=== PATIENT | male | born 1935 | race Caucasian/White ===

== ENCOUNTER 2017-09-04 10:48 | Day surgery (SDC) | payer MEDICARE ==
[~2017-09-04] VITALS: Ht 172.7 cm; Wt 90.9 kg
--- NOTE | ~2017-09-04 | OP ---
PATIENT NAME: MIGUEL RODRIGUEZ MEDICAL RECORD: [id number] :34 LOCATION:[facility] ADMISSION DATE: SURGEON: AYDIN SANCHEZ MD DATE OF OPERATION: 09/04/2017 SURGEON: Aydin Sanchez MD ANESTHESIA: MAC by Dr. Colin Walker. DIAGNOSES: 1. Urinary retention. 2. Bladder neck contracture. PROCEDURES: Cystoscopy, bladder neck incision, Wilkins catheter insertion over a guidewire. FINDINGS: Urethral meatal stricture, tight bladder neck contracture. ESTIMATED BLOOD LOSS: None. SPECIMENS: None. CLINICAL HISTORY: This is an 82-year-old male, who is visiting [place] from [place], [place]. He was actually in [place] visiting sick relatives. He had in March 2017, a TURP performed in [place], [place]. Afterwards, he developed a contracture of the bladder neck and he has been keeping it dilated using self catheterization. At 3:00 a.m. this morning, he was unable to void and he went to the Emergency Room in [place]. They were unable to place the Wilkins catheter into him. Bladder scan indicated a bladder volume of 800 mL. The Emergency Room in [place] called the transfer center to have the patient transferred here. He comes now to have a cystoscopy with bladder neck incision and Wilkins catheter insertion over a guidewire. He is not allergic to any medications. We gave him Ancef 2 grams IV main line station engineer to the OR. DESCRIPTION OF PROCEDURE: The patient was given IV sedation. He was placed in the dorsal lithotomy position and prepped and draped. I initially used a 21-Fijian cystoscope with 30-degree lens. There is a bit of a urethral meatal stricture, which I dilated by passage of the scope. Penile urethra was otherwise fine without any strictures. Going into the prostatic urethra, the prostate has been widely resected. There is a very tight pinhole bladder neck contracture. A Sensor wire was placed through the lumen of the bladder neck and into the bladder. We then switched over to the optic urethrotome with a 30-degree lens. Using a cold knife at the 12 o'clock position, the stricture was cut through. I was then able to pass the optic urethrotome into the bladder. The bladder was partly drained through the optic urethrotome. I could see no lesions in the bladder. The optic urethrotome was then removed, leaving the wire in place. Over the wire, we inserted a 16-Fijian [place] tip Wilkins catheter. Once the catheter was fully in the bladder, we inflated the balloon with 10 cc of sterile water. The wire was then removed entirely. The balloon was put to bag drainage. The patient will be going back to [place], [place] today. He plans to stay for an indefinite period of time. I have advised him on how to remove the Wilkins catheter himself next week in 1 week's time. TRANSINT:[id number] Voice Confirmation ID: [id number] DOCUMENT ID: [id number] OPERATIVE REPORT [id number] MIGUEL RODRIGUEZ ROBERT S MD at 1327 CC: [id number] DICTATION DATE: 09/04/17 1236 FIBER ANALYST: 09/04/17 1251 [facility] [address] [id number]
[2017-09-04 10:44] LABS: BASOPHILS 0.1 % (0-2); EOSINOPHILS 6.5 % (0-7); HEMATOCRIT 40.1 % (42.0-54.0); HEMOGLOBIN 13.8 g/dL (13.5-17.5); IMMATURE GRANULOCYTES 0.1 % (0-5); LYMPHOCYTES 19.6 % (15-50); MCHC 34.4 g/dL (31.0-37.0); MEAN PLATELET VOLUME 9.8 fL (7.4-10.4); MONOCYTES 9.8 % (2-11); NEUTROPHILS 63.9 % (40-80); PLATELET COUNT 155 10x3/uL (130-400); RBC 4.31 10x6/uL (4.20-6.10); RDW 12.8 % (11.5-14.5); WBC 9.7 10x3/uL (4.8-10.8)
[~2017-09-04 10:48] MED LIST: BAYER CHEWABLE81 MG PO; CARDURA4 MG PO; GLUCOPHAGE1000 MG PO; LIPITOR20 MG PO; NORVASC5 MG PO; OS-CAL500 MG PO; VITAMIN B-121000 MCG PO; ZESTRIL40 MG PO
[2017-09-04 10:55] VITALS: BP 167/93; Ht 172.7 cm; Wt 90.9 kg
[2017-09-04 10:57] LABS: ANION GAP 13.5 mmol/L (8-16); CALCIUM 9.2 mg/dL (8.5-10.1); CARBON DIOXIDE 26.8 mmol/L (21.0-32.0); CREATININE - SERUM 1.5 mg/dL (0.6-1.3); POTASSIUM - SERUM 4.3 mmol/L (3.5-5.1)
== END 2017-09-04 13:45 | disposition home or self-care (01) ==
LOC: D.OPS 10:48
PROVIDERS: Anesthesiology
DX: N32.0 Bladder-neck obstruction (principal); N35.8 Other urethral stricture; Z01.812 Encounter for preprocedural laboratory examination